=== PATIENT | female | born 1980 | race Asian ===

== ENCOUNTER 2016-12-11 06:55 | Inpatient (IN) | payer SELFPAY ==
[~2016-12-11] VITALS: Ht 165 cm; Wt 77.0 kg
[2016-12-11] MEDS ORDERED: OXYTOCIN 10 UNITS/ML VIAL IM SCH (07:15)
[2016-12-11] MEDS ORDERED: PROMETHAZINE 25 MG/ML VIAL IVP PRN (07:15)
[2016-12-11] MEDS ORDERED: IBUPROFEN 800 MG TAB PO PRN (07:15)
[2016-12-11] MEDS ORDERED: METHYLERGONOVINE 0.2 MG/ML AMP IM SCH (07:15)
[2016-12-11] MEDS ORDERED: OXYTOCIN 20 UNITS/LR PREMIX 1,000 ML IV SCH (07:15)
[2016-12-11] MEDS ORDERED: CARBOPROST 250 MCG/ML AMP IM PRN (07:15)
[2016-12-11] MEDS ORDERED: NALBUPHINE 10 MG/ML AMP IVP PRN (07:15)
[2016-12-11] MEDS ORDERED: LACTATED RINGERS 1,000 ML IV SCH (07:15)
[2016-12-11 07:20] VITALS: BP 112/61
[2016-12-11] MEDS ORDERED: AMPICILLIN 2,000 MG VIAL ONE (07:25)
[2016-12-11] MEDS ORDERED: OXYTOCIN 20 UNITS/LR PREMIX 1,000 ML IV ONE (07:29)
[2016-12-11] MEDS ORDERED: OXYTOCIN 10 UNITS/ML VIAL ONE (07:29)
[2016-12-11] MEDS ORDERED: LIDOCAINE 1% 50 ML ONE (07:30)
[2016-12-11] MEDS ORDERED: NALBUPHINE HYDROCHLORIDE 10 MG/ML VIAL ONE (07:40)
[2016-12-11 07:43] LABS: BASOPHILS # (AUTO) 0.1 K/uL (0.00-0.22); EOSINOPHILS # (AUTO) 0.3 K/uL (0-0.4); EOSINOPHILS % (AUTO) 1.8 % (0.0-4.0); HEMATOCRIT 40.8 % (36-48); HEMOGLOBIN 13.7 g/dL (12.0-16.0); LYMPHOCYTES # (AUTO) 1.8 K/uL (2.5-16.5); MEAN CORPUSCULAR HEMOGLOBIN 32 pg (27-31); MEAN CORPUSCULAR HGB CONC 34 g/dL (33-37); MEAN CORPUSCULAR VOLUME 96 fL (80-94); MONOCYTES # (AUTO) 0.7 K/uL (0.8-1.0); MONOCYTES % (AUTO) 4.6 % (1.7-9.3); NEUTROPHILS % (AUTO) 80.6 % (42.2-75.2); PLATELET COUNT (AUTO) 160 K/uL (140-450); RED BLOOD CELL COUNT(AUTO) 4.24 MIL/uL (4.20-5.40); RED CELL DISTRIBUTION WIDTH 13.1 % (11.6-13.7); WHITE BLOOD COUNT (AUTO) 14.9 K/uL (4.8-10.8)
[2016-12-11 07:44] LABS: APPEARANCE,URINE TURBID (CLEAR); BILIRUBIN,URINE NEGATIVE (NEGATIVE); BLOOD, URINE 3+ (NEGATIVE); COLOR,URINE YELLOW (YELLOW); LEUKOCYTE ESTERASE ,URINE 1+ (NEGATIVE); NITRITE, URINE NEGATIVE (NEGATIVE); PROTEIN,URINE TRACE (NEGATIVE); UGLUCOSE NEGATIVE (NEGATIVE); UROBILINOGEN,URINE 0.2 EU/dL (0.2 - 1)
[2016-12-11] MEDS ORDERED: AMPICILLIN 1,000 MG VIAL IVP SCH (08:00)
[2016-12-11] MEDS ORDERED: METHYLERGONOVINE 0.2 MG/ML AMP ONE (08:03)
[2016-12-11 08:07] LABS: ALBUMIN 2.5 g/dL (3.4-5.0); ANION GAP 14.9 (8-16); CREATININE 0.7 mg/dL (0.6-1.3); POTASSIUM 3.9 mmol/L (3.5-5.1); TOTAL BILIRUBIN 0.4 mg/dL (0.0-1.0); TOTAL PROTEIN, SERUM 6.2 g/dL (6.4-8.2)
[2016-12-11 08:13] LABS: CALCIUM 8.1 mg/dL (8.5-10.1)
[2016-12-11 08:15] LABS: BACTERIA,URINE 1+ /HPF (None Seen); MUCUS,URINE 2+ /LPF (None Seen); RBC,URINE 11-20 (MOD) /HPF (0-5); SQUAMOUS EPITHELIAL CELL,UR 4-10 (MOD) /LPF (0-3 (FEW))
--- NOTE | 2016-12-11 09:22 | NUR ---
PATIENT HAS BEEN SCREENED AND CATEGORIZED LOW NUTRITION RISK. PATIENT WILL BE SEEN WITHIN 7 DAYS OF ADMISSION. 12/17/[address]
[2016-12-11] MEDS ORDERED: AMMONIA AROMATIC 1 INHL INH ONE (11:29)
[2016-12-11] MEDS ORDERED: TEMAZEPAM 15 MG CAP PO PRN (15:40)
[2016-12-11] MEDS ORDERED: WITCH HAZEL 40 PAD PACKAGE TP PRN (15:40)
[2016-12-11] MEDS ORDERED: HYDROcodone/APAP 5/325 MG 1 TAB TAB PO PRN (15:40)
[2016-12-11] MEDS ORDERED: oxyCODONE/APAP 5/325 MG 1 TAB TAB PO PRN (15:40)
[2016-12-11] MEDS ORDERED: BENZOCAINE/MENTHOL 20%-0.5% 60 GM CAN TP PRN (15:40)
[2016-12-11] MEDS ORDERED: METHYLERGONOVINE 0.2 MG/ML AMP IM PRN (15:40)
[2016-12-11] MEDS ORDERED: MEASLES, MUMPS, AND RUBELLA 1 VIAL SQVAC PRN (15:40)
[2016-12-11] MEDS ORDERED: OXYTOCIN 10 UNITS/ML VIAL IM PRN (15:40)
[2016-12-11] MEDS ORDERED: METOCLOPRAMIDE 10 MG TAB PO PRN (17:15)
[2016-12-11] MEDS ORDERED: DOCUSATE SOD/SENNA 50/8.6 MG 1 TAB PO SCH (21:00)
[2016-12-12 05:39] LABS: HEMATOCRIT 25.9 % (36-48)
[2016-12-12] MEDS: IBUPROFEN 800 MG TAB PO PRN (08:13)
[2016-12-13] MEDS: IBUPROFEN 800 MG TAB PO PRN ×2 (12:44→21:47)
== END 2016-12-13 22:40 | disposition home or self-care (01) | DRG 775 ==
LOC: MLD 06:55 → MFCC 14:00
PROVIDERS: ADMIT Obstetrics & Gynecology; ATTEND Obstetrics & Gynecology
PROC: 10E0XZZ Delivery of Products of Conception, External Approach (ICD-10-PCS; principal; 2016-12-11)
PROC: 0KQM0ZZ Repair Perineum Muscle, Open Approach (ICD-10-PCS; 2016-12-11)
PROC: 10907ZC Drainage of Amniotic Fluid, Therapeutic from Products of Conception, Via Natural or Artificial Opening (ICD-10-PCS; 2016-12-11)
PROC: 3E0234Z Introduction of Serum, Toxoid and Vaccine into Muscle, Percutaneous Approach (ICD-10-PCS; 2016-12-11)
DX: O77.0 Labor and delivery complicated by meconium in amniotic fluid (principal); O75.89 Other specified complications of labor and delivery; O70.1 Second degree perineal laceration during delivery; Z3A.37 37 weeks gestation of pregnancy; Z37.0 Single live birth; O09.523 Supervision of elderly multigravida, third trimester; Z23 Encounter for immunization
CPT/HCPCS: 36415; 59409; 80053; 81001; 85018; 85025; 86592; 86886; 86900; 86901; 87086; 90715; J0290; J2001; J2210; J2300; J2590; J7120; J8597